=== PATIENT | female | born 1990 | race African-American/Black ===

== ENCOUNTER 2022-08-23 19:17 | Emergency (ER) | payer OTHER ==
[~2022-08-23] VITALS: Ht 162.6 cm; Wt 122.3 kg
[~2022-08-23 19:17] MED LIST: OMEG300C3 PO
[2022-08-23] MEDS ORDERED: AMOX250C4 PO ×2 (20:19→20:38)
[2022-08-23 20:42] VITALS: BP 132/69
== END 2022-08-23 20:46 | disposition home or self-care (01) ==
LOC: EMS 19:18
DX: J02.9 Acute pharyngitis, unspecified (principal); J35.8 Other chronic diseases of tonsils and adenoids; F41.9 Anxiety disorder, unspecified; I10 Essential (primary) hypertension; Z98.890 Other specified postprocedural states
CPT/HCPCS: 82962; 99283

== ENCOUNTER 2023-06-24 13:25 | Emergency (ER) | payer OTHER ==
[~2023-06-24] VITALS: Ht 162.6 cm; Wt 100.0 kg
[~2023-06-24 13:25] MED LIST changes: +AMOX250C4 PO; -OMEG300C3 PO
[2023-06-24 13:31] VITALS: TEMP 98.4
[2023-06-24] MEDS ORDERED: SERT-440 PO (13:36)
[2023-06-24] MEDS ORDERED: AMLO10TA55 PO (13:36)
[2023-06-24] MEDS ORDERED: OMEP20CA12 PO (13:36)
[2023-06-24] MEDS ORDERED: METF-1211 PO (13:36)
[2023-06-24 13:54] LABS: APPEARANCE,URINE HAZY (CLEAR); BILIRUBIN,URINE NEGATIVE (NEGATIVE); COLOR,URINE LIGHT YELLOW (YELLOW); GLUCOSE, URINE (UA) NEGATIVE (NEGATIVE); KETONES,URINE NEGATIVE (NEGATIVE); LEUKOCYTE ESTERASE ,URINE LARGE (NEGATIVE); NITRATE,URINE NEGATIVE (NEGATIVE); OCCULT BLOOD,URINE SMALL (NEGATIVE); PH,URINE 7.5 (5.0-8.0); PROTEIN,URINE 30-70 mg/dL (NEGATIVE)
[2023-06-24 14:10] VITALS: BP 134/84; PULSE 81; RESP 16
[2023-06-24 14:11] LABS: BACTERIA,URINE Many /HPF (None Seen); SQUAMOUS EPITHELIAL CELL,UR Many /LPF (None Seen); WBC,URINE 51-100 /HPF (0-5)
[2023-06-24] MEDS ORDERED: NITR-75 PO ×2 (14:17→15:05)
[2023-06-24] MEDS ORDERED: PHEN-674 PO ×2 (14:17→15:05)
== END 2023-06-24 15:31 | disposition home or self-care (01) ==
LOC: EMS 13:42
DX: N39.0 Urinary tract infection, site not specified (principal); F41.9 Anxiety disorder, unspecified; I10 Essential (primary) hypertension; Z98.890 Other specified postprocedural states
CPT/HCPCS: 81001; 87086; 87186; 99283

== ENCOUNTER 2025-08-11 16:11 | Emergency (ER) | payer OTHER ==
[~2025-08-11] VITALS: Ht 162.6 cm; Wt 106.8 kg
[~2025-08-11 16:11] MED LIST changes: +AMLO10TA55 PO; -AMOX250C4 PO; +NITR-104 PO; +OMEP20CA12 PO; +PHEN-674 PO; +SERT-440 PO
[2025-08-11 16:12] VITALS: TEMP 98.7
[2025-08-11 17:00] VITALS: BP 167/88; PULSE 105; RESP 22; O2SAT 100
[2025-08-11 17:05] LABS: PH,URINE DRUG SCREEN 6.5 (5.0-8.0)
[2025-08-11 17:11] LABS: ALCOHOL, URINE DRUG SCREEN NEGATIVE (NEGATIVE); AMPHET/METH SCREEN,URINE NEGATIVE (NEGATIVE); BARBITURATE SCREEN, URINE NEGATIVE (NEGATIVE); CANNABINOID SCREEN,URINE NEGATIVE (NEGATIVE); COCAINE SCREEN,URINE NEGATIVE (NEGATIVE); METHADONE SCREEN, URINE NEGATIVE (NEGATIVE)
[2025-08-11 17:18] LABS: PLATELET COUNT (AUTO) 308 K/uL (150-450); RED BLOOD CELL COUNT(AUTO) 4.31 MIL/uL (4.00-5.20); RED CELL DISTRIBUTION WIDTH 19.2 % (11.5-14.5); WHITE BLOOD COUNT (AUTO) 6.9 K/uL (4.5-11.0)
[2025-08-11 17:25] LABS: CALCIUM, TOTAL 8.3 mg/dL (8.8-10.5); CREATININE 0.58 mg/dL (0.60-1.30); GLOMERULAR FILTR. RATE CALC > 60 mL/min (>60); GLUCOSE,RANDOM 91 mg/dL (70-110); SODIUM SERUM 136 mmol/L (136-145); UREA NITROGEN, BLOOD 12 mg/dL (7-18)
[2025-08-11] MEDS: ACETAMINOPHEN 500 MG TABLET PO ONE (17:34)
[2025-08-11 18:19] LABS: RBC MORPHOLOGY COMMENT ABNORMAL RBC MORPH
== END 2025-08-11 18:50 ==
LOC: EMS 16:11
DX: S00.511A Abrasion of lip, initial encounter (principal); R07.89 Other chest pain; R42 Dizziness and giddiness; I10 Essential (primary) hypertension; Z79.899 Other long term (current) drug therapy; Z98.51 Tubal ligation status; Z98.890 Other specified postprocedural states; Z65.3 Problems related to other legal circumstances; Y04.0XXA Assault by unarmed brawl or fight, initial encounter; Y93.89 Activity, other specified; Y92.89 Other specified places as the place of occurrence of the external cause; Y99.8 Other external cause status
CPT/HCPCS: 70450; 71045; 80048; 80307; 84703; 85025; 99284; 36415-L1; 36415-TC